=== PATIENT | male | born 1955 | race Caucasian/White ===

== ENCOUNTER → 2018-02-04 | Outpatient (CLI) | payer OTHER ==
[~2018-02-04] MED LIST: AMOXICILLIN500 M1 PO; ASPIR 8181 M1 PO; ASPIR-LOW81 MG PO; ATORVASTATIN CA80 MG PO; CLOPIDOGREL75 MG PO; FOLIC ACID1 MG PO; HEALTHY HEART1 EAC1 PO; LIPITOR80 MG PO; LOPRESSOR25 MG PO; METOPROLOL TART25 MG PO; NITROSTAT0.4 MG SL; PLAVIX75 MG PO; SELENIUM100 MICROG PO
== END | disposition home or self-care (01) ==
LOC: CDC 14:58
DX: Z01.810 Encounter for preprocedural cardiovascular examination (principal); I25.2 Old myocardial infarction
CPT/HCPCS: 93000